=== PATIENT | female | born 1990 | race Caucasian/White ===

== ENCOUNTER 2016-04-19 23:43 | Emergency (ER) | payer OTHER ==
[~2016-04-19] VITALS: Ht 180.3 cm; Wt 60.0 kg
[~2016-04-19 23:43] MED LIST: ZOLO20CO PO
[2016-04-19 23:55] VITALS: BP 109/55; PULSE 67; RESP 18; TEMP 98.5; O2SAT 97
[2016-04-20] MEDS ORDERED: ZOFR4TAB PO (00:09)
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
== END 2016-04-20 02:42 | disposition home or self-care (01) ==
LOC: NEPA 23:43
DX: S09.90XA Unspecified injury of head, initial encounter (principal); S16.1XXA Strain of muscle, fascia and tendon at neck level, initial encounter; F17.210 Nicotine dependence, cigarettes, uncomplicated; V43.62XA Car passenger injured in collision with other type car in traffic accident, initial encounter; Y93.9 Activity, unspecified; Y92.9 Unspecified place or not applicable; Y99.9 Unspecified external cause status
CPT/HCPCS: 70450; 84703

== ENCOUNTER 2016-12-25 22:49 | Emergency (ER) | payer OTHER ==
[~2016-12-25] VITALS: Ht 180.3 cm; Wt 70.0 kg
[~2016-12-25 22:49] MED LIST changes: +ZOFR4TAB PO; -ZOLO20CO PO
[2016-12-25 22:51] VITALS: BP 103/72; PULSE 107; RESP 16; TEMP 98.8; O2SAT 97
[2016-12-25] MEDS ORDERED: POLYMYXIN/TRIMETHOPRIM OPHT SOLN 10 ML BTL RIGHT EYE ONE (23:45)
[2016-12-25] MEDS ORDERED: POLY10O RIGHT EYE (23:51)
--- NOTE | 2016-12-25 23:51 | PD ---
HPI Chief Complaint: Eye Problems/Injury Time Seen by Provider: 23:24 Travel History International Travel<30 days: No Contact w/Intl Traveler<30days: No Traveled to known affect area: No History of Present Illness HPI 26-year-old female here for evaluation of right eye pain and discharge. The patient reports that about 5 days ago a tree branch scratched her right eye. She has been having intermittent pain since then and has noted some purulent drainage. She also noted some pustules develop on the skin outside of her eyes medially today. She went to a pharmacy and was advised to present to an eye doctor or emergency department for antibiotics. No fevers. No photophobia. She does not wear contacts. PFSH Past Medical History Cancer: Yes (basal cell carcinoma resection in 2009) Diminished Hearing: No Gastrointestinal Disorders: Yes ( gastroparesis) Immunizations Current: Yes Seizures: Yes (x 2 in 2009) Tetanus Vaccination: Unknown ?: Not LMP: 1 week ago : 1 : 1 Past Surgical History Surgical History: No Previous Surgery Social History Alcohol Use: Yes Tobacco Use: Yes (/2 ppd) Substance Use: No Allergies-Medications (Allergen,Severity, Reaction): Coded Allergies: No Known Allergies (Verified , 12/25/16) Reported Meds & Prescriptions Reported Meds & Active Scripts Active Polytrim Opth Drops (Polymyxin/Trimethoprim Sulfate) 10,000-0.1 Unit/Ml-% Soln 1 Drop RIGHT EYE Q6HR Reported Zofran (Ondansetron HCl) 4 Mg Tab 4 Mg PO Q8HR PRN Review of Systems Except as stated in HPI: all other systems reviewed are Neg Physical Exam Narrative GENERAL: Well-developed, well-nourished, awake, alert, no apparent distress. SKIN: Focused skin assessment warm/dry. HEAD: Atraumatic. Normocephalic. EYES: Pupils equal, round, 3 mm, reactive to light. EOMI. No proptosis. Mild right scleral injection with mild purulent drainage. On the skin outside of her right eye medially there are a couple tiny pustules and mild erythema. No preseptal edema. Fluorescein stain of the right eye shows no corneal abrasions. Corneas are clear bilaterally. Visual acuity is 20/15 in the right eye, 20/15 in the left eye, 20/15 in bilateral eyes. CARDIOVASCULAR: Regular rate and rhythm. NEUROLOGICAL: Awake and alert. No obvious cranial nerve deficits. Motor grossly within normal limits. Normal speech. PSYCHIATRIC: Appropriate mood and affect; insight and judgment normal. Data Data Last Documented VS Vital Signs Date Time Temp Pulse Resp B/P (MAP) Pulse Ox O2 Delivery O2 Flow Rate FiO2 12/25/16 22:51 98.8 107 16 103/72 (82) 97 Room Air Orders Orders Polymyxin/Trimethop Opht Soln (Polytrim (12/25/16 23:45) MDM Medical Decision Making Medical Screen Exam Complete: Yes Emergency Medical Condition: Yes Differential Diagnosis Conjunctivitis, corneal abrasion, retro-orbital cellulitis unlikely, preseptal cellulitis unlikely Narrative Course Vital signs reviewed. Heart rate improved to 87 without any intervention. EYES: Pupils equal, round, 3 mm, reactive to light. EOMI. No proptosis. Mild right scleral injection with mild purulent drainage. On the skin outside of her right eye medially there are a couple tiny pustules and mild erythema. No preseptal edema. Fluorescein stain of the right eye shows no corneal abrasions. Visual acuity is 20/15 in the right eye, 20/15 in the left eye, 20/ 15 in bilateral eyes. Patient's clinical exam is consistent with conjunctivitis. I do not believe she has preseptal cellulitis or orbital cellulitis based on clinical exam. Plan is to start her on antibiotic eyedrops and to have her follow-up with ophthalmology in the next 1-2 days. She will be given the name of the automotive porter transfer station attendant with whom to follow-up with. She was informed on when to return to the emergency department. She verbalizes understanding and agreement with plan. Diagnosis Primary Impression: Conjunctivitis Qualified Codes: H10.31 - Unspecified acute conjunctivitis, right eye Referrals: Camille Quinonez MD 1 day Sheet Tester Additional Instructions: Follow-up with automotive porter Dr. Quinonez or an automotive porter of your choice this week. Return to the emergency department for worsening symptoms or any other concerns. Scripts Polymyxin B-Trimethoprim Opth Drops (Polytrim Opth Drops) 10,000-0.1 Unit/Ml-% Soln 1 DROP RIGHT EYE Q6HR for Mgmt Bacterial Infection, #1 BOTTLE 0 Refills Prov: Charlie Velasquez MD 12/25/16 Disposition: 01 DISCHARGE HOME Condition: Stable Charlie Velasquez MD Dec 25, 2016 23:51
== END 2016-12-26 00:36 | disposition home or self-care (01) ==
LOC: NEPD 22:49
DX: H10.31 Unspecified acute conjunctivitis, right eye (principal)
CPT/HCPCS: 99283

== ENCOUNTER 2017-08-03 18:11 | Emergency (ER) | payer OTHER ==
[~2017-08-03] VITALS: Ht 180.3 cm; Wt 58.0 kg
[~2017-08-03 18:11] MED LIST changes: +POLY10O RIGHT EYE
[2017-08-03 18:16] VITALS: BP 124/70; PULSE 105; RESP 16; O2SAT 100
--- NOTE | 2017-08-03 18:34 | PD ---
HPI Chief Complaint: OD/ Ingestion Time Seen by Provider: 18:33 Travel History International Travel<30 days: No Contact w/Intl Traveler<30days: No Traveled to known affect area: No History of Present Illness HPI 27-year-old female with no significant medical history, presents emergency department today for evaluation following an overdose on heroin. Patient states that she used a different dealer than she typically does. She tells me that she did not inject any more than she usually does. She ended up overdosing. [facility] was contacted. She was given Narcan and responded well. She is awake and alert now. She denies any chest or tightness. No difficulty breathing. No nausea, vomiting, diarrhea. Patient states that she has been using IV drugs for the last 3 months and pills prior to that. PFSH Past Medical History Cancer: Yes (basal cell carcinoma resection in 2009) Diminished Hearing: No Gastrointestinal Disorders: Yes ( gastroparesis) Immunizations Current: Yes Seizures: Yes (x 2 in 2009) ?: Not LMP: 07/31/17 : 1 : 1 Past Surgical History Surgical History: No Previous Surgery Social History Alcohol Use: Yes Tobacco Use: Yes (1/2 ppd) Substance Use: No Allergies-Medications (Allergen,Severity, Reaction): Coded Allergies: No Known Allergies (Verified Adverse Reaction, Unknown, 08/03/17) Reported Meds & Prescriptions Reported Meds & Active Scripts Active Review of Systems Except as stated in HPI: all other systems reviewed are Neg Physical Exam Narrative GENERAL: Well-nourished female patient, no acute distress SKIN: Focused skin assessment warm/dry. Track salughter left upper extremity. HEAD: Atraumatic. Normocephalic. EYES: Pupils equal and round. No scleral icterus. No injection or drainage. ENT: No nasal bleeding or discharge. Mucous membranes pink and moist. NECK: Trachea midline. No JVD. CARDIOVASCULAR: Tachycardic rate and rhythm. No murmur appreciated. RESPIRATORY: No accessory muscle use. Clear to auscultation. Breath sounds equal bilaterally. GASTROINTESTINAL: Abdomen soft, non-tender, nondistended. Hepatic and splenic margins not palpable. MUSCULOSKELETAL: No obvious deformities. No clubbing. No cyanosis. No edema. NEUROLOGICAL: Awake and alert. No obvious cranial nerve deficits. Motor grossly within normal limits. Normal speech. Data Data Last Documented VS Vital Signs Date Time Temp Pulse Resp B/P (MAP) Pulse Ox O2 Delivery O2 Flow Rate FiO2 08/03/17 18:20 Room Air 08/03/17 18:16 105 16 124/70 (88) 100 Orders Orders Levetiracetam Inj (Keppra Inj) (08/03/17 18:45) MDM Medical Decision Making Medical Screen Exam Complete: Yes Emergency Medical Condition: Yes Medical Record Reviewed: Yes Differential Diagnosis Overdose accidental versus intentional versus electrolyte abnormality versus intoxication Narrative Course 27-year-old female presents emergency department following overdose on heroin. Patient was given Narcan in route. She is awake and alert. She is oriented 3. She is able to have conversation with me. Patient will be monitored for 4 hours. Barring that she remains stable, she will be discharged at that time. 1944 I am told that the patient has left the room. She has nowhere to be found. She is considered to have eloped. Please have been contacted. Diagnosis Primary Impression: Opiate overdose Disposition: 07 AGAINST MEDICAL ADVICE Condition: Stable Rachel Solis August 03, 2017 18:34
[2017-08-03] MEDS ORDERED: levETIRAcetam INJ 100 ML IV ONE (18:45)
== END 2017-08-04 11:08 | disposition left against medical advice (07) ==
LOC: NEPE 18:11
DX: T40.1X1A Poisoning by heroin, accidental (unintentional), initial encounter (principal); F17.200 Nicotine dependence, unspecified, uncomplicated
CPT/HCPCS: 99281